=== PATIENT | male | born 1965 | race Caucasian/White ===

== ENCOUNTER 2023-12-28 11:37 | Emergency (ER) | payer OTHER, SELFPAY ==
[2023-12-28 11:41] VITALS: BP 153/95; PULSE 72; RESP 18; TEMP 37.1; O2SAT 98; BMI 23.3
--- NOTE | 2023-12-28 11:54 | XR_ITS ---
The [address] [address] Patient Name: GLENROY JAIME MRN: [id number] date: 1965 Sex: M Assigned Patient Location: ER Current Patient Location: ER Accession/Order Number: [id number] Exam Date: 12/28/2023 12:18 Report Date: 12/28/2023 12:51 At the request of: NELSY PAUL Procedure: XR abdomen min 2V EXAM: XR abdomen min 2V HISTORY: lower abdominal pain COMPARISON: None. TECHNIQUE: AP, upright x-ray abdomen. FINDINGS: There are scattered mildly prominent small bowel loops with air-fluid levels but no distention. Colon gas without distention. Gas and fluid in the stomach without distention. No free air. Soft tissues unremarkable. Visualized lung bases appear clear. XR/XR abdomen min 2V IMPRESSION: Scattered air-fluid levels without distention or evidence of obstruction. Findings nonspecific but can be seen with gastroenteritis. Correlate clinically. Electronically authenticated by: PETR HURTADO Date: 12/28/2023 12:51
--- NOTE | 2023-12-28 11:55 | ED_ITS ---
HPI - Abdominal Pain General Chief Complaint: Abdominal Pain Stated Complaint: Abdominal Pain Time Seen by Provider: 12/28/23 11:43 Source: patient Mode of arrival: walk-in Limitations: no limitations History of Present Illness HPI narrative: A few days ago the patient developed lower midline abdominal pain. It is non- radiating. While it is mild not, it has been severe at times and moderate at others. No associated symptoms - no fever, chills, nausea, vomiting, diarrhea, flank pain or back pain. Eating does not affect the pain. He said that the pain worsens while having a BM and then is better after the stool passes. No blood in stool although he has been straining to go. No urinary symptoms. Pain is non radiating. He has never had this before - no prior abdominal surgeries and no personal history of Crohn's, ulcerative colitis, IBS, diverticulitis, UTI or kidney stones. Related Data Home Medications ?Medication ?Instructions ?Recorded ?Confirmed amlodipine 5 mg tablet 7.5 mg PO DAILY 12/28/23 12/28/23 atorvastatin 20 mg tablet 20 mg PO DAILY 12/28/23 12/28/23 azelastine 137 mcg (0.1 %) nasal 1 spray intranasal .daily 12/28/23 12/28/23 spray aerosol carvedilol 6.25 mg tablet 6.25 mg PO Q12H 12/28/23 12/28/23 fluticasone propionate 50 2 spray intranasal Q12H 12/28/23 12/28/23 mcg/actuation nasal spray,suspension metformin 500 mg tablet,extended 500 mg PO DAILY 12/28/23 12/28/23 release 24 hr omeprazole 40 mg capsule,delayed 40 mg PO DAILY 12/28/23 12/28/23 release Previous Rx's ?Medication ?Instructions ?Recorded hyoscyamine sulfate 0.125 mg 0.125 mg PO Q6H PRN abdominal pain 12/28/23 sublingual tablet (Levsin/SL) #20 tabs nabumetone 750 mg tablet 750 mg PO BID PRN pain #14 tabs 12/28/23 Allergies Allergy/AdvReac Type Severity Reaction Status Date / Time Penicillins Allergy Mild Verified 12/28/23 11:41 Exam Narrative Exam Narrative: Nurses notes and vital signs reviewed and patient is not hypoxic. Afebrile General: Well-appearing and in no apparent distress. Skin: Warm, dry, no pallor noted. No rash. Eye: Pupils are equal, round and EOMI. No scleral icterus. Ears, Nose, Mouth, and Throat: Oral mucosa is moist Cardiovascular: Regular Rate and Rhythm without murmur, gallop or rub. Respiratory: No accessory muscle use or respiratory distress. Lungs are clear to auscultation, no wheezing, rales or rhonchi Back: No CVA tenderness GI: Abdomen is soft, non-distended. Normal bowel sounds. No masses appreciated. Suprapubic tenderness to palpation. No rebound, guarding, or rigidity noted. Neurological: A&O x4. No cranial nerve dysfunction observed. No truncal ataxia. Moves all extremities. Sensation intact. Psychiatric: Cooperative and interactive. Normal mood and affect. Constitutional Vital Signs, click to edit/add: Last Vital Signs Temp 98.7 F 12/28/23 11:41 Pulse 72 12/28/23 11:41 Resp 18 12/28/23 11:41 BP 153/95 H 12/28/23 11:41 Pulse Ox 98 12/28/23 11:41 O2 Del Method Room Air 12/28/23 11:41 Course Vital Signs Vital signs: Vital Signs Temperature 98.7 F 12/28/23 11:41 Pulse Rate 72 12/28/23 11:41 Respiratory Rate 18 12/28/23 11:41 Blood Pressure 153/95 H 12/28/23 11:41 Pulse Oximetry 98 12/28/23 11:41 Oxygen Delivery Method Room Air 12/28/23 11:41 Temperature 98.7 F 12/28/23 11:41 Pulse Rate 72 12/28/23 11:41 Respiratory Rate 18 12/28/23 11:41 Blood Pressure 153/95 H 12/28/23 11:41 Pulse Oximetry 98 12/28/23 11:41 Oxygen Delivery Method Room Air 12/28/23 11:41 MDM - Abdominal Pain MDM Narrative Medical decision making narrative: Abdominal x-rays obtained. Blood drawn and sent for testing. Urine also ordered to be obtained and sent for testing. The patient was given oral dissolvable Levsin for his abdominal pain. CBC, CMP and UA normal. Abd xrays = no obstruction or ileus,unremarkable bowel gas pattern. Patient's workup unremarkable. He felt better after ED treatment. Results discussed with the patient. he will be discharged home with prescriptions for relafen and Levsin. Recommend soft bland diet until pain resolves. Lab Data Attestation: I reviewed the patient's lab results. Labs: Lab Results 12/28/23 12/28/23 Range/Units 11:45 12:02 WBC 10.4 (4.0-11.0) 10^3/uL RBC 5.07 (4.70-6.10) 10^6/uL Hgb 15.4 (14.0-18.0) g/dL Hct 45.1 (42.0-54.0) % MCV 89.0 (80.0-94.0) fL MCH 30.4 (25.9-34.0) pg MCHC 34.1 (29.9-35.2) g/dL RDW 13.0 (11.0-15.0) % Plt Count 293 (150-450) 10^3/uL MPV 8.6 L (9.5-13.5) fL Neut % (Auto) 60.9 (43.0-75.0) % Lymph % (Auto) 25.5 (20.5-60.0) % [place] % (Auto) 9.3 (1.7-12.0) % Eos % (Auto) 3.3 (0.9-7.0) % Baso % (Auto) 0.6 (0.2-2.0) % Neut # (Auto) 6.3 (1.4-6.5) 10^3/uL Lymph # (Auto) 2.6 (1.2-3.8) 10^3/uL [place] # (Auto) 1.0 H (0.3-0.8) 10^3/uL Eos # (Auto) 0.3 (0.0-0.7) 10^3/uL Baso # (Auto) 0.1 (0.0-0.1) 10^3/uL Abs Immat Gran (auto) 0.04 H (0.00-0.03) 10^3/uL Imm/Tot Granulo (auto) 0.4 (0.0-0.5) % Sodium 139 (136-145) mmol/L Potassium 4.0 (3.5-5.1) mmol/L Chloride 101 (98-107) mmol/L Carbon Dioxide 27.1 (21.0-32.0) mmol/L Anion Gap 14.9 BUN 8.0 (7.0-18.0) mg/dL Creatinine 0.97 (0.70-1.30) mg/dL Est GFR ( Amer) >60 (>=60) Est GFR (Non-Af Amer) >60 (>=60) BUN/Creatinine Ratio 8.2 Glucose 108 H (74-106) mg/dL Calcium 9.0 (8.5-10.1) mg/dL Total Bilirubin 0.5 (0.2-1.0) mg/dL AST 23 (15-37) U/L ALT 51 (16-63) U/L Alkaline Phosphatase 113 (46-116) U/L Total Protein 7.9 (6.4-8.2) g/dL Albumin 3.8 (3.4-5.0) g/dL Globulin 4.1 g/dL Albumin/Globulin Ratio 0.9 Urine Color Yellow (YELLOW) Urine Clarity Clear (CLEAR) Urine pH 5.5 (5.0-9.0) Ur Specific [place] 1.025 (1.005-1.025) Urine Protein Trace (NEG/TRACE) mg/dL Urine Glucose (UA) Negative (NEGATIVE) mg/dL Urine Ketones Negative (NEGATIVE) mg/dL Urine Occult Blood Negative (NEGATIVE) Urine Nitrite Negative (NEGATIVE) Urine Bilirubin Negative (NEGATIVE) Urine Urobilinogen 0.2 (0.2-1.0) EU/dL Ur Leukocyte Esterase Negative (NEGATIVE) Imaging Data Abdominal x-ray: Radiologist's impression: ITS Impressions Abdomen X-Ray 12/28/23 11:54 IMPRESSION: Scattered air-fluid levels without distention or evidence of obstruction. Findings nonspecific but can be seen with gastroenteritis. Correlate clinically. Electronically authenticated by: PETR HURTADO Date: 12/28/2023 12:51 Discharge Plan Discharge Stand Alone Forms: Portal Instructions Chief Complaint: Abdominal Pain Clinical Impression: Abdominal pain Patient Disposition: Home, Self-Care Time of Disposition Decision: 12:52 Prescriptions / Home Meds: New nabumetone 750 mg tablet 750 mg PO BID PRN (Reason: pain) Qty: 14 0RF hyoscyamine sulfate [Levsin/SL] 0.125 mg tablet, sublingual 0.125 mg PO Q6H PRN (Reason: abdominal pain) Qty: 20 0RF No Action amlodipine 5 mg tablet 7.5 mg PO DAILY atorvastatin 20 mg tablet 20 mg PO DAILY azelastine 137 mcg (0.1 %) aerosol,spray 1 spray INTRANASAL .daily carvedilol 6.25 mg tablet 6.25 mg PO Q12H fluticasone propionate 50 mcg/actuation spray,suspension 2 spray INTRANASAL Q12H metformin 500 mg tablet extended release 24 hr 500 mg PO DAILY omeprazole 40 mg capsule,delayed release(DR/EC) 40 mg PO DAILY Print Language: Belarusian Instructions: Abdominal Pain (ED) Referrals: Physician,Non-Staff, MD [Primary Care Provider] - 1 week
[2023-12-28] MEDS: HYOSCYAMINE SULFATE 0.125 MG TAB.SUBL SL (12:02)
[2023-12-28 12:11] LABS: Bilirubin Urine NEGATIVE (NEGATIVE); Blood Urine NEGATIVE (NEGATIVE); Clarity Urine CLEAR (CLEAR); Glucose Urine UA NEGATIVE (NEGATIVE); Ketones Urine NEGATIVE (NEGATIVE); Leukocyte Esterase Urine NEGATIVE (NEGATIVE); Nitrite Urine NEGATIVE (NEGATIVE); Protein Urine TRACE mg/dL (NEG/TRACE); Specific Gravity Urine 1.025 (1.005-1.025); Urobilinogen Urine 0.2 EU/dL (0.2-1.0); pH Urine 5.5 (5.0-9.0)
[2023-12-28 12:11] LABS: Basophils Absolute Auto 0.1 10^3/uL (0.0-0.1); Basophils Percent Auto 0.6 % (0.2-2.0); Eosinophils Absolute Auto 0.3 10^3/uL (0.0-0.7); Eosinophils Percent Auto 3.3 % (0.9-7.0); Hematocrit 45.1 % (42.0-54.0); Hemoglobin 15.4 g/dL (14.0-18.0); Immature Granulocytes Abs Auto 0.04 10^3/uL (0.00-0.03); Immature Granulocytes Pct Auto 0.4 % (0.0-0.5); Lymphocytes Absolute Auto 2.6 10^3/uL (1.2-3.8); Lymphocytes Percent Auto 25.5 % (20.5-60.0); Mean Corpuscular HGB Conc 34.1 g/dL (29.9-35.2); Mean Corpuscular Hemoglobin 30.4 pg (25.9-34.0); Mean Platelet Volume 8.6 fL (9.5-13.5); Monocytes Percent Auto 9.3 % (1.7-12.0); Neutrophils Absolute Auto 6.3 10^3/uL (1.4-6.5); Neutrophils Percent Auto 60.9 % (43.0-75.0); Platelet Count 293 10^3/uL (150-450); Red Blood Count 5.07 10^6/uL (4.70-6.10); White Blood Count 10.4 10^3/uL (4.0-11.0)
[2023-12-28 12:17] LABS: Color Urine YELLOW (YELLOW)
[2023-12-28 12:18] LABS: Urine Microscopic Indicated NO
[2023-12-28 12:27] LABS: Alanine Aminotransferase 51 U/L (16-63); Albumin Globulin Ratio 0.9; Albumin Level 3.8 g/dL (3.4-5.0); Alkaline Phosphatase 113 U/L (46-116); Anion Gap 14.9; Aspartate Amino Transferase 23 U/L (15-37); BUN Creatinine Ratio 8.2; Bilirubin Total 0.5 mg/dL (0.2-1.0); Carbon Dioxide 27.1 mmol/L (21.0-32.0); Chloride 101 mmol/L (98-107); Estimated GFR (African America >60 (>=60); Estimated GFR (Non-African Ame >60 (>=60); Globulin 4.1 g/dL; Glucose 108 mg/dL (74-106); Sodium 139 mmol/L (136-145); Total Protein 7.9 g/dL (6.4-8.2)
== END 2023-12-28 13:21 | disposition home or self-care (01) ==
PROVIDERS: Emergency Provider Emergency Medicine
DX: R10.9 Unspecified abdominal pain (principal); Z79.899 Other long term (current) drug therapy; Z79.84 Long term (current) use of oral hypoglycemic drugs
CPT/HCPCS: 36415; 74019; 80053; 81003; 85025; 99284

== ENCOUNTER 2024-05-22 15:36 | Emergency (ER) | payer OTHER, SELFPAY ==
[2024-05-22 15:40] VITALS: BP 174/98; PULSE 80; TEMP 37.3; O2SAT 97; BMI 24.4
--- NOTE | 2024-05-22 15:46 | XR_ITS ---
The [address] [address] Patient Name: GLENROY JAIME MRN: [id number] date: 1965 Sex: M Assigned Patient Location: ER Current Patient Location: ER Accession/Order Number: [id number] Exam Date: 05/22/2024 15:53 Report Date: 05/22/2024 16:04 At the request of: HELIO RIED Procedure: XR chest 1V EXAMINATION: XR chest 1V HISTORY: shortness of breath COMPARISON: No relevant comparison available. FINDINGS: LUNGS: No significant pulmonary parenchymal abnormalities. VASCULATURE: No increased pulmonary vasculature. PLEURA: No pneumothorax, effusion, or pleural thickening. CARDIAC: No cardiomegaly or cardiac silhouette abnormality. MEDIASTINUM: No visible mass or adenopathy. BONES: No fracture or visible bone lesion. OTHER: Negative. XR/XR chest 1V IMPRESSION: 1. No acute cardiopulmonary process. Electronically authenticated by: SEBASTIAN LOPEZ Date: 05/22/2024 16:04
--- NOTE | 2024-05-22 15:52 | ED_ITS ---
HPI HPI - General Adult General Chief complaint: Shortness of Breath/Dyspnea Stated complaint: SOB Time Seen by Provider: 05/22/24 15:48 Source: patient Mode of arrival: walk-in History of Present Illness HPI narrative: This patient is here with his being sent to us from his previous practitioner chest x-ray he woke up Saturday morning felt sick with chills and not feeling very good. He did test positive for COVID. This is now 3 days of illness. He does have comorbidities of hypertension and diabetes and pulmonary nodules he has no history of emphysema or asthma. He quit smoking 3 months ago. He did have the first 2 COVID vaccines but not the booster shots. He has no other nausea vomiting or symptomatic viral type symptomatology. He has no headache or neck pain. He has missed work this week. Related Data Home Medications ?Medication ?Instructions ?Recorded ?Confirmed amlodipine 5 mg tablet 7.5 mg PO DAILY 12/28/23 12/28/23 atorvastatin 20 mg tablet 20 mg PO DAILY 12/28/23 12/28/23 azelastine 137 mcg (0.1 %) nasal 1 spray intranasal .daily 12/28/23 05/22/24 spray carvedilol 6.25 mg tablet 6.25 mg PO Q12H 12/28/23 05/22/24 fluticasone propionate 50 2 spray intranasal Q12H 12/28/23 12/28/23 mcg/actuation nasal spray,suspension metformin 500 mg tablet,extended 500 mg PO DAILY 12/28/23 12/28/23 release 24 hr omeprazole 40 mg capsule,delayed 40 mg PO DAILY 12/28/23 05/22/24 release Allergies Allergy/AdvReac Type Severity Reaction Status Date / Time Penicillins Allergy Mild Verified 12/28/23 11:41 Opioid HPI Opioid Management Most Recent Opioid Data: No Data to Display Exam Narrative Exam Narrative: Awake alert pleasant in no distress vital signs are stable. Rate. He is not coughing no stridor cough or congestion. He is wearing a mask. His is in the room also where asked. Medication and past medical history reviewed and is confirmed. He really has no acute symptomatology or shortness of breath today. He is not currently on any antibiotics. Neurological function is normal. He actually had no complaints he was just here to get his chest x-ray. Constitutional Vital Signs, click to edit/add: Last Vital Signs Temp 99.2 F 05/22/24 15:40 Pulse 80 05/22/24 15:40 Resp 18 05/22/24 15:40 BP 174/98 H 05/22/24 15:40 Pulse Ox 97 05/22/24 15:40 O2 Del Method Room Air 05/22/24 15:40 Course Vital Signs Vital signs: Vital Signs Temperature 99.2 F 05/22/24 15:40 Pulse Rate 80 05/22/24 15:40 Respiratory Rate 18 05/22/24 15:40 Blood Pressure 174/98 H 05/22/24 15:40 Pulse Oximetry 97 05/22/24 15:40 Oxygen Delivery Method Room Air 05/22/24 15:40 Temperature 99.2 F 05/22/24 15:40 Pulse Rate 80 05/22/24 15:40 Respiratory Rate 18 05/22/24 15:40 Blood Pressure 174/98 H 05/22/24 15:40 Pulse Oximetry 97 05/22/24 15:40 Oxygen Delivery Method Room Air 05/22/24 15:40 Medical Decision Making MDM Narrative Medical decision making narrative: This patient is here after being diagnosed as an outpatient with COVID. His pulse oximetry is normal. Will ask him to consider purchasing a pulse oximeter to watch his readings at home. He quit smoking recently and has pulmonary nodules and he has 2 comorbidities so we will start him on Paxlovid. Discharge Plan Discharge Stand Alone Forms: Portal Instructions Chief Complaint: Shortness of Breath/Dyspnea Clinical Impression: COVID-19 Patient Disposition: Home, Self-Care Time of Disposition Decision: 16:06 Prescriptions / Home Meds: No Action amlodipine 5 mg tablet 7.5 mg PO DAILY atorvastatin 20 mg tablet 20 mg PO DAILY azelastine 137 mcg (0.1 %) aerosol,spray 1 spray INTRANASAL .daily carvedilol 6.25 mg tablet 6.25 mg PO Q12H fluticasone propionate 50 mcg/actuation spray,suspension 2 spray INTRANASAL Q12H metformin 500 mg tablet extended release 24 hr 500 mg PO DAILY omeprazole 40 mg capsule,delayed release(DR/EC) 40 mg PO DAILY Print Language: Bengali Additional Instructions: Stop atorvastatin. May resume after Paxlovid is completed Referrals: Physician,Non-Staff, MD [Primary Care Provider] - 1 week
== END 2024-05-22 16:21 | disposition home or self-care (01) ==
PROVIDERS: Emergency Provider Emergency Medicine Emergency Medical Services; PCP Nurse Practitioner Family
DX: U07.1 COVID-19 (principal); E11.9 Type 2 diabetes mellitus without complications; I10 Essential (primary) hypertension; Z87.891 Personal history of nicotine dependence; Z79.84 Long term (current) use of oral hypoglycemic drugs
CPT/HCPCS: 71045; 99283

== ENCOUNTER 2025-01-20 07:05 | Outpatient (RCR) | payer OTHER, SELFPAY ==
--- NOTE | 2024-10-15 14:48 | CR1_ITS ---
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
--- NOTE | 2024-10-27 11:15 | PC.NURSE ---
called to out reach patient a second time, called patient originally on oct 22 and spoke to him. He stated he was meeting with his supervisors to get a schedule in place and would call back when he had one established. called patient again today who said he would call back this afternoon with dates and times
--- NOTE | 2024-11-12 08:00 | CR1_ITS ---
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
--- NOTE | 2024-11-30 07:55 | CR1_ITS ---
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
--- NOTE | 2024-12-10 08:15 | CR1_ITS ---
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
--- NOTE | 2025-01-11 09:49 | CR1_ITS ---
The [facility] Test Date: 2025-01-11 Pat Name: GLENROY JAIME Department: Room: - Gender: Male Manager Title: : 1965 Requested By: SONYA JIMÉNEZ Order Number: [id number] Pam MD: SONYA JIMÉNEZ Interpretive Statements Session Date: Electronically Signed On 01-17-2025 19:58:55 EDT by SONYA JIMÉNEZ
--- NOTE | 2025-02-10 07:43 | CR1_ITS ---
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 The patient is encouraged to continue participating in cardiac rehabilitation. Electronically Signed On 02-15-2025 7:52:23 EDT by Aryan Rinaldi
== END 2025-02-25 07:25 | disposition home or self-care (01) ==
LOC: CR 07:05
PROVIDERS: PCP Nurse Practitioner Family
DX: Z98.61 Coronary angioplasty status (principal)
CPT/HCPCS: 93798